=== PATIENT | male | born 1985 | race American Indian/Alaskan Native ===

== ENCOUNTER 2017-10-13 14:14 | Emergency (ER) | payer BC ==
[2017-10-13 17:41] LABS: Basophils # (Auto) 0.1 K/mm3 (0.0-0.1); Basophils % (Auto) 0.6 % (0.0-1.8); Eosinophils # (Auto) 0.1 K/mm3 (0.0-0.4); Eosinophils % (Auto) 0.7 % (0.0-4.3); Hemoglobin 16.3 gm/dl (11.8-15.2); Lymphocytes # (Auto) 4.2 K/mm3 (1.2-5.4); Lymphocytes % (Auto) 24.8 % (13.4-35.0); Mean Corpuscular HGB Conc 34 % (32-34); Mean Corpuscular Hemoglobin 29 pg (28-32); Mean Corpuscular Volume 87 fl (84-94); Monocytes # (Auto) 0.9 K/mm3 (0.0-0.8); Monocytes % (Auto) 5.6 % (0.0-7.3); Platelet Count 239 K/mm3 (140-440); Red Blood Count 5.54 M/mm3 (3.65-5.03); Red Cell Distribution Width 13.4 % (13.2-15.2)
[2017-10-13 18:25] LABS: Alanine Aminotransferase 57 units/L (7-56); Albumin 5.1 g/dL (3.9-5); BUN/Creatinine Ratio 10; Blood Urea Nitrogen 8 mg/dL (9-20); Calcium 9.8 mg/dL (8.4-10.2); Hemolysis Index 19
[2017-10-13] MEDS ORDERED: TYLENOL PO ONE (20:26)
[2017-10-13] MEDS ORDERED: NACL 0.9% 1000 ML 1,000 ML IV ONE (23:06)
[2017-10-13] MEDS ORDERED: VALIUM IV ONE (23:07)
--- NOTE | 2017-10-13 23:16 | Emergency Department Report ---
HPI - General Chief Complaint: Abdominal Pain Time Seen by Provider: 10/13/17 22:59 - HPI HPI: This is a 31 year-old male presents to the emergency department with a complaint of a one-week history of body cramps and pain that worsened today. He says that he has muscle cramps that started at his neck and caudally down to the legs but it is worst around the abdomen. He denies any fever, nausea, vomiting or any problems with bowel or bladder. He only has a past medical history of asthma. He tried some [id number] medication earlier today without much relief. He does not have a primary care physician. No recent travel or sick contacts at home. ED Past Medical Hx - Past Medical History Previous Medical History?: Yes Hx Asthma: Yes - Surgical History Past Surgical History?: No - Social History Smoking Status: Current Every Day Smoker Substance Use Type: None - Medications Home Medications: Home Medications Medication Instructions Recorded Confirmed Last Taken Type Diazepam [Valium] 5 mg PO BID PRN #10 tablet 10/14/17 Unknown Rx ED Review of Systems ROS: Stated complaint: BODY CRAMPS Other details as noted in HPI Comment: All other systems reviewed and negative Constitutional: denies: chills, fever Eyes: denies: eye pain, eye discharge, vision change ENT: denies: ear pain, throat pain Respiratory: denies: cough, shortness of breath, wheezing Cardiovascular: denies: chest pain, palpitations Gastrointestinal: denies: nausea, vomiting Genitourinary: denies: urgency, dysuria Musculoskeletal: back pain, arthralgia, myalgia. denies: joint swelling Skin: denies: rash, lesions Neurological: denies: headache, weakness Physical Exam - Physical Exam Vital Signs: Vital Signs 10/13/17 10/13/17 17:11 20:41 Temperature 97.9 F 98.7 F Pulse Rate 98 H 84 Respiratory 16 20 Rate Blood Pressure 154/76 Blood Pressure 160/84 [Left] O2 Sat by Pulse 97 99 Oximetry Physical Exam: GENERAL: The patient is well-developed well-nourished. HENT: Normocephalic. Atraumatic. Patient has moist mucous membranes. EYES: Extraocular motions are intact. Pupils equal reactive to light bilaterally. NECK: Supple. Trachea is midline. CHEST/LUNGS: Clear to auscultation. There is no respiratory distress noted. HEART/CARDIOVASCULAR: Regular. There is no tachycardia. There is no murmur. ABDOMEN: Abdomen is soft, nontender. Patient has normal bowel sounds. There is no abdominal distention. SKIN: Skin is warm and dry. NEURO: The patient is awake, alert, and oriented. The patient is cooperative. The patient has no focal neurologic deficits. The patient has normal speech and gait. MUSCULOSKELETAL: There is no tenderness or deformity. There is no limitation range of motion. There is no evidence of acute injury. Muscle strength 5 out of 5 in upper and lower shoulders bilaterally. ED Course Vital Signs 10/13/17 10/13/17 17:11 20:41 Temperature 97.9 F 98.7 F Pulse Rate 98 H 84 Respiratory 16 20 Rate Blood Pressure 154/76 Blood Pressure 160/84 [Left] O2 Sat by Pulse 97 99 Oximetry ED Medical Decision Making - Lab Data Result diagrams: 10/13/17 17:16 10/13/17 17:16 - Radiology Data Radiology results: image reviewed interpreted by me: Abdominal x-ray shows nonspecific nonobstructive bowel gas. - Medical Decision Making The patient presents with full body cramping and/or spasms. He does not appear to have any focal, motor or sensory deficits and cranial nerves are intact. He is seen ambulatory. He does not appear in any acute distress. Labs are mostly unremarkable except for some hematuria seen on the urinalysis and a leukocytosis of 16,000. No urinary tract infection. There are no electrolyte abnormalities and he has normal kidney function. No glucose abnormalities. He has no complaints of any cough, chest pain, shortness of breath, dysuria. He was given a liter of IV fluid and immediately started saying that he was feeling better. He was also given a muscle relaxer. He was reevaluated multiple times and says he is feeling improved. I spoke with him regarding the negative abdominal x-ray. I spoke with him regarding the hematuria. His abdominal discomfort was described as cramping and was generalized. It seems like lower suspicion for nephrolithiasis causing his pain and/or hematuria. However I recommended a renal ultrasound with the patient did not want this done at this time. He understands that he needs to see a urologist regarding the hematuria to make sure that it is not something dangerous or any malignancy. He has been given referrals to both primary care and urology. He will increase his oral rehydration. He was given a small amount of muscle relaxers and understands the sedating nature of these meds and when he can or should not take them. He will return to the ER with any worsening of symptoms or any acute distress. Vital signs stable. - Differential Diagnosis muscle spasm, fibromyalgia, UTI, urethritis, nephrolithiasis, malignancy Critical Care Time: No Critical care attestation.: If time is entered above; I have spent that time in minutes in the direct care of this critically ill patient, excluding procedure time. ED Disposition Clinical Impression: Muscle cramping, Body aches Hypertension Qualifiers: Hypertension type: essential hypertension Qualified Code(s): I10 - Essential ( primary) hypertension Hematuria Qualifiers: Hematuria type: asymptomatic microscopic Qualified Code(s): R31.21 - Asymptomatic microscopic hematuria Disposition: TO HOME OR SELFCARE Is pt being admited?: No Condition: Stable Instructions: Hypertension (ED), Muscle Cramp (ED), Acute Hematuria (ED) Additional Instructions: Please follow up with a primary care physician. I have given you a referral for a local urologist, Dr. De Santiago, to follow up regarding the blood found in your urine. Please try and stay away from foods that are high in salt and caffeinated products to help with your elevated blood pressure. Keep a blood pressure log. Please try and quit smoking. Return to the emergency Department with any worsening of your symptoms or any acute distress. You have been prescribed a medication that is sedating and therefore should not be taken prior to driving, working, and responsible for children and in no way should be mixed with alcohol of any quantity. Prescriptions: Diazepam [Valium] 5 mg PO BID PRN #10 tablet PRN Reason: Muscle Spasm Referrals: PRIMARY CARE, [Primary Care Provider] - 3-5 Days DANI DE SANTIAGO MD [Staff Physician] - 3-5 Days MALISSA POWELL MD [Staff Physician] - 3-5 Days LAURIE RASCON MD [Staff Physician] - 3-5 Days Time of Disposition: 02:15
[2017-10-13] MEDS ORDERED: VALIUM PO ONE (23:50)
[2017-10-14] MEDS ORDERED: VALIUM ONE (00:04)
--- NOTE | 2017-10-14 00:45 | XRay Report ---
FINAL REPORT PROCEDURE: XR ABDOMEN 2V TECHNIQUE: Abdominal series, including supine and upright AP views. HISTORY: Abd pain COMPARISON: No prior studies are available for comparison. FINDINGS: Bowel gas pattern:Nonobstructive . Masses or calcifications:None . Bony structures:No significant abnormality . There is advanced degenerative arthrosis of the right hip joint. Pneumoperitoneum:None . Other:No significant findings . IMPRESSION: No acute abnormality.
[2017-10-14 01:02] LABS: Color,Urine Yellow (Yellow)
[2017-10-14 01:03] LABS: Bilirubin,Urine Negative (Negative)
[2017-10-14 01:04] LABS: Blood,Urine Small (Negative); Nitrite,Urine Negative (Negative); Urobilinogen,Urine < 2.0 mg/dL (<2.0)
[2017-10-14 01:49] LABS: Amorphous Crystals,Urine 2+; Bacteria,Urine 1+ /HPF (Negative); Mucus,Urine Few /HPF
[2017-10-14 02:54] VITALS: BP 140/96
== END 2017-10-14 02:53 | disposition home or self-care (01) ==
LOC: ED 14:14
DX: M79.1 Myalgia (principal); I10 Essential (primary) hypertension; R31.21 Asymptomatic microscopic hematuria; J45.909 Unspecified asthma, uncomplicated; F17.200 Nicotine dependence, unspecified, uncomplicated
CPT/HCPCS: 36415; 74019; 80053; 81001; 82962; 85025; 96360; 99284; J7030